=== PATIENT | male | born 1960 | race Caucasian/White ===

== ENCOUNTER 2019-03-06 16:14 | Emergency (ER) | payer BC, OTHER ==
--- NOTE | 2019-03-06 16:52 | EDM.PDOC ---
ED HPI GENERAL MEDICAL PROBLEM - General Chief Complaint: Chest Pain Stated Complaint: CHEST PAIN Time Seen by Provider: 03/06/19 16:46 Source of Information: Reports: Patient History Limitations: Reports: No Limitations - History of Present Illness INITIAL COMMENTS - FREE TEXT/NARRATIVE: 59-year-old male attends the ED per [facility]. Patient was in the workplace when he developed sudden onset of severe central chest pain that radiated up along both sides of his anterior neck. Did not radiate through his back. He states was preceded about 10 minutes prior by a burning sensation inferior to his umbilicus. He states he did have a bowel movement after this which seemed to relieve this discomfort. By history has a history of GERD but he states this didn't feel anything like that. This pain was bad enough to make it go sit down for a period of time and he broke out in a bit of sweat and felt mildly nauseated. He also felt mildly dizzy. He never did vomit. He states the pain last about 5 minutes and then dissipated on its own. trying to quit smoking cigarettes for the fourth time in October of this year. He is trying to quit 4 times in the last 2 years. Patient has a history of hypercholesterolemia but has been off medication for about 2 weeks since he ran out. He has no known hypertension. Past history of elevated TSH repeated of time but it returned to normal after your medication. He has remained off medication for the last year. He is moderately overweight. He's had no previous abdominal surgery. No known heart disease. His initial ECG shows sinus rhythm at 61/m with a right bundle branch block pattern with no definitive signs of any ischemia. Of note he did not have a sensation of need to burp or belch to relieve the discomfort. Onset: Today Onset Date: 03/06/19 Onset Time: 15:50 Duration: Minutes: Location: Reports: Chest (Central chest pressure discomfort radiating up into both sides of his anterior neck. Pain was completely gone at the time he was seen in the ED. 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 [No Known Home Meds] 03/06/19 [History] Past Medical History HEENT History: Reports: Other (See Below) Other HEENT History: mastoid operaton for hearing;lazy eye surgery; Cardiovascular History: Reports: High Cholesterol, Hypertension Endocrine/Metabolic History: Reports: Hypothyroidism - Past Surgical History HEENT Surgical History: Reports: Tonsillectomy Social & Family History - Tobacco Use Smoking Status *Q: Former Smoker Years of Tobacco use: 35 Used Tobacco, but Quit: Yes Month/Year Tobacco Last Used: 4 months - Caffeine Use Caffeine Use: Reports: Soda, Tea - Recreational Drug Use Recreational Drug Use: No - Living Situation & Occupation Living situation: Reports: Single Occupation: Employed ED ROS GENERAL - Review of Systems Review Of Systems: See Below Constitutional: Denies: Fever, Chills, Malaise, Weakness, Fatigue, Decreased Appetite, Weight Loss HEENT: Reports: No Symptoms Respiratory: Reports: No Symptoms Cardiovascular: Reports: Chest Pain (Central chest pressure discomfort that radiate up into both sides of his neck. No pain into the back), Dyspnea on Exertion (At times.). Denies: Blood Pressure Problem, Claudication, Edema, Lightheadedness, Orthopnea Endocrine: Reports: Fatigue GI/Abdominal: Reports: Other (History of intermittent GERD but not using any medication as of late.) : Reports: Frequency, Other (Nocturia usually 1.) Musculoskeletal: Reports: Back Pain, Joint Pain Skin: Reports: No Symptoms (Knees hips and neck at times) Neurological: Reports: No Symptoms Psychiatric: Reports: No Symptoms Hematologic/Lymphatic: Reports: No Symptoms Immunologic: Reports: No Symptoms ED EXAM, GENERAL - Physical Exam Exam: See Below Exam Limited By: No Limitations General Appearance: Alert, WD/WN, Anxious, Other (Vital signs are stable. Sats are 99% on room air.) Eye Exam: Bilateral Eye: Normal Inspection Throat/Mouth: Normal Inspection, Normal Lips, Normal Teeth, Normal Oropharynx Head: Atraumatic, Normocephalic Neck: Normal Inspection, Supple, Non-Tender, Full Range of Motion, Other. No: Carotid Bruit, Lymphadenopathy (L), Lymphadenopathy (R) Respiratory/Chest: No Respiratory Distress (No JVD), Lungs Clear, Normal Breath Sounds, No Accessory Muscle Use, Chest Non-Tender Cardiovascular: Normal Peripheral Pulses, Regular Rate, Rhythm, No Edema, No Gallop, No Murmur, No Rub Peripheral Pulses: 2+: Posterior Tibial (L), Posterior Tibial (R), Dorsalis Pedis (L), Dorsalis Pedis (R) GI/Abdominal: Normal Bowel Sounds, Soft, Non-Tender, No Organomegaly, No Abnormal Bruit, No Mass, Pelvis Stable, Other (Abdominal girth limits ability to palpate solid organs.) Back Exam: Normal Inspection, Full Range of Motion. No: CVA Tenderness (L), CVA Tenderness (R) Extremities: Normal Inspection, Normal Range of Motion, Non-Tender, No Pedal Edema, Normal Capillary Refill Neurological: Alert, Oriented, CN II-XII Intact, Normal Cognition Psychiatric: Anxious Skin Exam: Warm, Dry, Intact, Normal Color, No Rash EKG INTERPRETATION EKG Date: 03/06/19 Time: 16:23 Rhythm: NSR Rate (Beats/Min): 61 [place]: Normal P-Wave: Present QRS: RBBB ST-T: Normal QT: Normal EKG Interpretation Comments: Abnormal ECG signs of ischemia. Course - Vital Signs Last Recorded V/S: Last Vital Signs Temp 36.9 C 03/06/19 16:27 Pulse 64 03/06/19 16:27 Resp 20 03/06/19 16:27 BP 152/79 H 03/06/19 16:27 Pulse Ox 99 03/06/19 16:27 - Orders/Labs/Meds Orders: Active Orders 24 hr Category Date Time Status EKG 12 Lead [EKG Documentation Completion] [RC] STAT Care 03/06/19 16:30 Active EKG Documentation Completion [RC] STAT Care 03/06/19 16:47 Inactive EKG Documentation Completion [RC] STAT Care 03/06/19 17:53 Active Chest 2V [CR] Stat Exams 03/06/19 16:47 Taken Sodium Chloride 0.9% [Normal Saline] 1,000 ml Med 03/06/19 17:00 Active IV ASDIRECTED Medication Orders Sodium Chloride (Normal Saline) 1,000 mls @ 150 mls/hr IV ASDIRECTED PAULY Last Admin: 03/06/19 17:20 Dose: 150 mls/hr Labs: Laboratory Tests 03/06/19 03/06/19 03/06/19 Range/Units 17:10 17:10 17:10 WBC 9.70 H (4.23-9.07) K/mm3 RBC 5.14 (4.63-6.08) M/mm3 Hgb 15.5 (13.7-17.5) gm/L Hct 46.8 (40.1-51.0) % MCV 91.1 (79.0-92.2) fl MCH 30.2 (25.7-32.2) pg MCHC 33.1 (32.2-35.5) g/dl RDW Std Deviation 49.8 H (35.1-43.9) fL Plt Count 192 (163-337) K/mm3 MPV 10.1 (9.4-12.3) fl Neutrophils % (Manual) 62 H (40-60) % Band Neutrophils % 2 (0-10) % Lymphocytes % (Manual) 28 (20-40) % Atypical Lymphs % 0 % Monocytes % (Manual) 7 (2-10) % Eosinophils % (Manual) 1 (0.8-7.0) % Basophils % (Manual) 0 L (0.2-1.2) Platelet Estimate Adequate Macrocytosis 2+ moderate RBC Morph Comment Not Reportable D-Dimer, Quantitative 0.20 (0.19-0.50) mg/L Sodium 138 (136-145) mEq/L Potassium 3.7 (3.5-5.1) mEq/L Chloride 104 (98-107) mEq/L Carbon Dioxide 25 (21-32) mEq/L Anion Gap 12.7 (5-15) BUN 16 (7-18) mg/dL Creatinine 0.9 (0.7-1.3) mg/dL Est Cr Clr Drug Dosing 93.50 mL/min Estimated GFR (MDRD) > 60 (>60) mL/min BUN/Creatinine Ratio 17.8 (14-18) Glucose 107 H (74-106) mg/dL Calcium 9.0 (8.5-10.1) mg/dL Magnesium (1.8-2.4) mg/dl Total Bilirubin 0.3 (0.2-1.0) mg/dL AST 19 (15-37) U/L ALT 36 (16-63) U/L Alkaline Phosphatase 75 (46-116) U/L CK-MB (CK-2) 3.3 (0-3.6) ng/ml Troponin I < 0.017 (0.00-0.056) ng/mL C-Reactive Protein (<1.0) mg/dL NT-Pro-B Natriuret Pep (0-125) pg/mL Total Protein 7.2 (6.4-8.2) g/dl Albumin 3.8 (3.4-5.0) g/dl Globulin 3.4 gm/dL Albumin/Globulin Ratio 1.1 (1-2) 03/06/19 03/06/19 Range/Units 17:10 17:10 WBC (4.23-9.07) K/mm3 RBC (4.63-6.08) M/mm3 Hgb (13.7-17.5) gm/L Hct (40.1-51.0) % MCV (79.0-92.2) fl MCH (25.7-32.2) pg MCHC (32.2-35.5) g/dl RDW Std Deviation (35.1-43.9) fL Plt Count (163-337) K/mm3 MPV (9.4-12.3) fl Neutrophils % (Manual) (40-60) % Band Neutrophils % (0-10) % Lymphocytes % (Manual) (20-40) % Atypical Lymphs % % Monocytes % (Manual) (2-10) % Eosinophils % (Manual) (0.8-7.0) % Basophils % (Manual) (0.2-1.2) Platelet Estimate Macrocytosis RBC Morph Comment D-Dimer, Quantitative (0.19-0.50) mg/L Sodium (136-145) mEq/L Potassium (3.5-5.1) mEq/L Chloride (98-107) mEq/L Carbon Dioxide (21-32) mEq/L Anion Gap (5-15) BUN (7-18) mg/dL Creatinine (0.7-1.3) mg/dL Est Cr Clr Drug Dosing mL/min Estimated GFR (MDRD) (>60) mL/min BUN/Creatinine Ratio (14-18) Glucose (74-106) mg/dL Calcium (8.5-10.1) mg/dL Magnesium 1.9 (1.8-2.4) mg/dl Total Bilirubin (0.2-1.0) mg/dL AST (15-37) U/L ALT (16-63) U/L Alkaline Phosphatase (46-116) U/L CK-MB (CK-2) (0-3.6) ng/ml Troponin I (0.00-0.056) ng/mL C-Reactive Protein 0.5 (<1.0) mg/dL NT-Pro-B Natriuret Pep 29 (0-125) pg/mL Total Protein (6.4-8.2) g/dl Albumin (3.4-5.0) g/dl Globulin gm/dL Albumin/Globulin Ratio (1-2) Meds: Medications Generic Name Dose Route Start Last Admin Trade Name Timq PRN Reason Stop Dose Admin Sodium Chloride 1,000 mls @ 150 mls/hr 03/06/19 17:00 03/06/19 17:20 Normal Saline IV 150 mls/hr ASDIRECTED PAULY Administration - Radiology Interpretation Free Text/Narrative:: 59-year-old male presents the ED per ambulance from his workplace. He states that he suddenly developed heavy pressure discomfort in the center of his chest that radiated up his chest to the anterior aspect of both sides of his throat. This made him slightly dizzy and perhaps mildly nauseated. He states there is no visual acuity changes. Denies any pain referred into his back arms or legs. Pain dissipated on its own after about 5 minutes. He did sit down for a period of time and a coworker decided that this could represent a heart attack and called 911 and the ambulance brought him to the ED. He is a large man and has known hypercholesterolemia and has been a smoker up until October of this year. Family history of heart disease as well. No history of hypertension although he was told he was hypertensive in the past. ECG shows no sign of ischemia sinus rhythm at 61/m with a right bundle branch block pattern. Plan two-view chest x- ray so I can have a look at his aorta. Routine labs including cardiac markers and d-dimer to be done. IV will be normal saline at 150 mils per hour. - Re-Assessments/Exams Free Text/Narrative Re-Assessment/Exam: 03/06/19 17:00: 2 views of the chest revealed no widening of the mediastinum or other concerns for dissecting aortic aneurysm. Cardiac silhouette is normal. Mild prominence of pulmonary arteries appreciated. No infiltrate in either lung appreciated. Patient reports no recurrence of the chest discomfort. His BP does remain mildly elevated at 154. He 9. Remains a sinus rhythm at 65/m. O2 sats remained 95% on room air as well. Monitor suggesting that there is ST segment depression in the 5-lead. I will have ECG repeated. Labs are pending. D-dimer is back and is less than 0.20. 03/06/19 18:11 Second ECG was done at my request as the monitor showing the V5 lead suggesting ST segment depression and T-wave inversion however this is not the case. Second ECG shows sinus bradycardia at 57/m with a persistent right bundle branch block and is essentially completely unchanged from the first ECG an hour and a half ago.Labs are back revealing a total white count of 9.70 with 62% neutrophils and 2% bands. Hemoglobin is 15.5 with hematocrit of 46.8. Platelet callus under 92,000. The slide shows 2+ macrocytosis. D-dimer was 0.20. Sodium is 1:30 with a potassium of 3.7. Chloride is 104 with a bicarbonate of 25. Anion gap is 12.7 with a BUN of 16. Creatinine is 0.9 with a GFR greater than 60. Glucose is 107. Calcium is 9.0. Magnesium is 1.9. Total bilirubin was 0.3 with an AST of 19 and ALT of 36. Alk phosphatase is 75. CK-MB fraction is 3.3 with a troponin I of less than 0.017. C-reactive protein is 0.5. BNP is 29. Total protein is 7.2 with an albumin fraction of 3.8. Therefore lab as being completely normal patient will be discharged to home. I do not have an exact cause for his transient central chest pain but was most likely esophageal spasm. It could've been a small hiatal hernia trying to find his way up into the thoracic cavity as well since the pain went all way up into his throat and neck. Patient reassured of the findings. If it is GI in origin as I suspect,it is likely going to happen again. Advised about things he can do to try and avoid hiatal hernia problems. Departure - Departure Time of Disposition: 18:16 Disposition: Home, Self-Care 01 Condition: Fair Clinical Impression: Non-cardiac chest pain Instructions: Nonspecific Chest Pain Referrals: PCP,None [Primary Care Provider] - Forms: ED Department Discharge Additional Instructions: Evaluation in the emergency room today in regards to development of acute onset of central chest pressure discomfort that radiated up into both sides of your anterior neck and throat. This may just mildly dizzy lightheaded and slightly nauseated for a period of about 5 minutes. It then went away on its own. All of the tests including electrocardiograms 2 revealed no evidence of heart related illness. Two-view chest x-ray also within normal limits. Complete lab work done to rule out blood clot in the lungs and/or heart attack testing was all normal as well. Also normal kidneys and liver function. Therefore no specific her exact cause of your chest pain could be identified however I suspect he was GI tract in origin. I suspect with her work UA done today that your stomach decide to slip or slide up through the food pipe opening into the lower chest. When this occurs it stretches the opening where the food pipe traverses the diaphragm. Irritation of the diaphragm we'll send pain up into the neck and throat as it has the same nerves as the neck and throat. The pain went away within 5 minutes because the hiatal hernia probably reduced itself and went back into the abdomen. Therefore there is a chance of this type of pain occurring again. It can often happen in the middle night if he eats late before lying down to go to sleep etc. At this time I would not recommend any further treatment as long as you're not having significant recurrent heartburn. Of course return to the ED if any similar problem occurs again or lasts longer than 5-10 minutes. - My Orders Last 24 Hours: My Active Orders 03/06/19 16:30 EKG 12 Lead [EKG Documentation Completion] [RC] STAT 03/06/19 16:47 EKG Documentation Completion [RC] STAT Chest 2V [CR] Stat 03/06/19 17:00 Sodium Chloride 0.9% [Normal Saline] 1,000 ml IV ASDIRECTED 03/06/19 17:53 EKG Documentation Completion [RC] STAT - Assessment/Plan Last 24 Hours: My Active Orders 03/06/19 16:30 EKG 12 Lead [EKG Documentation Completion] [RC] STAT 03/06/19 16:47 EKG Documentation Completion [RC] STAT Chest 2V [CR] Stat 03/06/19 17:00 Sodium Chloride 0.9% [Normal Saline] 1,000 ml IV ASDIRECTED 03/06/19 17:53 EKG Documentation Completion [RC] STAT
[2019-03-06] MEDS ORDERED: Sodium Chloride 0.9% 1,000 ML IV SCH (17:00)
--- NOTE | 2019-03-07 09:43 | CR ---
Chest: Two views of the chest were obtained. Comparison: No prior chest x-ray. Heart size and mediastinum are normal. Lungs are clear. Bony structures show diffuse degenerative endplate spurring within the spine. Impression: 1. Incidental findings. Nothing acute is seen. Diagnostic code #2
== END 2019-03-06 18:32 | disposition home or self-care (01) ==
LOC: JD.ED 16:14
DX: R07.89 Other chest pain (principal); I10 Essential (primary) hypertension; E78.00 Pure hypercholesterolemia, unspecified; E03.9 Hypothyroidism, unspecified; Z87.891 Personal history of nicotine dependence
CPT/HCPCS: 36415; 71046; 80053; 82553; 83735; 83880; 84484; 85007; 85027; 85379; 86140; 93005; 96360; 99285; J7040; 93010

== ENCOUNTER 2022-05-24 08:17 | Emergency (ER) | payer MEDICAID ==
[2022-05-24] MEDS ORDERED: Sodium Chloride 0.9% 10 ML Syringe FLUSH PRN (08:36)
[2022-05-24] MEDS ORDERED: Sodium Chloride 0.9% 1,000 ML IV ONE (08:47)
[2022-05-24] MEDS ORDERED: Magnesium Citrate Solution 296 ML Bottle PO ONE (10:40)
[2022-05-24] MEDS ORDERED: Levofloxacin 500 MG Tab PO ONE (10:41)
== END 2022-05-24 12:50 | disposition home or self-care (01) ==
LOC: JD.ED 08:17
DX: N41.9 Inflammatory disease of prostate, unspecified (principal); I10 Essential (primary) hypertension; Z87.891 Personal history of nicotine dependence
CPT/HCPCS: 36415; 51701; 74018; 74176; 80053; 81001; 83605; 83735; 85025; 86140; 87040; 87086; 96360; 99284; A9270; J3490; J7030

== ENCOUNTER 2022-05-31 01:40 | Emergency (ER) | payer MEDICAID ==
[2022-05-31] MEDS ORDERED: Lidocaine 2% 11 ML Jelly Filled Syringe MUCMEM STA (02:07)
[2022-05-31] MEDS ORDERED: Tamsulosin 0.4 MG Cap.ER PO ONE (02:30)
== END 2022-05-31 03:13 | disposition home or self-care (01) ==
LOC: JD.ED 01:40
DX: N13.9 Obstructive and reflux uropathy, unspecified (principal); E78.00 Pure hypercholesterolemia, unspecified; I10 Essential (primary) hypertension; E03.9 Hypothyroidism, unspecified; E66.9 Obesity, unspecified; Z68.30 Body mass index [BMI] 30.0-30.9, adult
CPT/HCPCS: 51702; 81001; 99283; 99284-25

== ENCOUNTER 2022-06-24 18:50 | Emergency (ER) | payer MEDICAID | END 2022-06-24 22:16 | disposition home or self-care (01) | LOC: JD.ED 18:50 | DX: R33.9 Retention of urine, unspecified (principal); E78.00 Pure hypercholesterolemia, unspecified; I10 Essential (primary) hypertension; E66.9 Obesity, unspecified; Z68.34 Body mass index [BMI] 34.0-34.9, adult | CPT/HCPCS: 51702; 81001; 99283-25 ==

== ENCOUNTER 2023-01-20 16:03 | Emergency (ER) | payer MEDICAID ==
[2023-01-20] MEDS ORDERED: Metoprolol Tartrate 50 MG Tab PO ONE (17:17)
[2023-01-20] MEDS ORDERED: Metoprolol Succinate 50 MG Tab.ER PO ONE (17:19)
[2023-01-20 17:37] LABS: ESTIMATED GFR 86 mL/min (>60)
== END 2023-01-20 18:44 | disposition home or self-care (01) ==
LOC: JD.ED 16:03
DX: I48.92 Unspecified atrial flutter (principal); E78.00 Pure hypercholesterolemia, unspecified; I10 Essential (primary) hypertension; E66.9 Obesity, unspecified; Z68.30 Body mass index [BMI] 30.0-30.9, adult
CPT/HCPCS: 36415; 71045; 80053; 83735; 84484; 85025; 85610; 85730; 93005; 99285; A9270; 93010; 99283